=== PATIENT | female | born 1955 | race Hispanic/Latino ===

== ENCOUNTER 2017-11-13 13:38 | Outpatient (CLI) | payer BC ==
--- NOTE | 2017-11-13 16:02 | Mammography Report ---
BILATERAL DIGITAL SCREENING MAMMOGRAM with CAD: 11/13/17 13:38:00 CLINICAL: Routine screening. COMPARISON:11/10/16 FINDINGS: There are bilateral scattered areas of fibroglandular density. No mass, architectural distortion or suspicious calcifications. IMPRESSION: No mammographic evidence of malignancy. BI-RADS CATEGORY: 2 -- Benign RECOMMENDATION: Routine mammographic screening in one year. COMMENT: Patient follow-up letters are generated by our [employer] application.
== END 2017-11-13 13:39 | disposition home or self-care (01) ==
LOC: SPVWC 13:38
DX: Z12.31 Encounter for screening mammogram for malignant neoplasm of breast (principal)
CPT/HCPCS: 77067; G0202

== ENCOUNTER 2019-11-16 14:17 | Outpatient (CLI) | payer BC ==
--- NOTE | 2019-11-17 13:04 | Mammography Report ---
DIGITAL SCREENING MAMMOGRAM WITH TOMOSYNTHESIS WITH CAD, 11/16/2019 INDICATION: Routine Screening Mammography. SCREENING MAMMOGRAM TECHNIQUE: Digital bilateral 2D and 3D mammography with tomosynthesis was obtained in the craniocau kiet and mediolateral oblique projections. Computer-Aided Detection (CAD) analysis was used for inter pretation of this study. COMPARISON: 11/15/2018 and 11/13/2017 FINDINGS: Breast Density: There are scattered areas of fibroglandular density. There is no evidence of new mass, suspicious calcifications or architectural distortion in either crystal ast. A stable 2 cm left lower inner benign intraparenchymal lymph node versus benign mixed density ma ss. IMPRESSION: No mammographic evidence of malignancy. Follow up recommendation: Routine yearly BI-RADS Category 2: Benign. A "normal" or negative report should not discourage follow up or biopsy of a clinically significant f inding. A written summary of these findings will be mailed to the patient. The patient will be entered into a mammography reporting system which will generate a reminder letter for the patient's next appointmen t at the appropriate interval. The [employer] recommends yearly mammograms starting at age 40 and continuing as l roman as a woman is in good health. Breast MRI is recommended for women with an approximate 20-25% or greater lifetime risk of breast cancer, including women with a strong family history of breast or ova mohinder cancer or who have been treated for Hodgkin's disease. Signer Name: Song Menjivar MD Signed: 11/17/2019 12:59 PM Workstation Name: [id number]
== END 2019-11-16 14:18 | disposition home or self-care (01) ==
LOC: SPVWC 14:17
DX: Z12.31 Encounter for screening mammogram for malignant neoplasm of breast (principal)
CPT/HCPCS: 77063; 77067

== ENCOUNTER 2020-11-20 13:43 | Outpatient (CLI) | payer MEDICARE ==
--- NOTE | 2020-11-21 15:17 | Mammography Report ---
DIGITAL SCREENING MAMMOGRAM WITH CAD, 11/21/2020 CLINICAL INFORMATION / INDICATION: Routine screening mammography. TECHNIQUE: Digital bilateral 2D mammography was obtained in the craniocaudal and mediolateral obliqu e projections. This examination was interpreted with the benefit of Computer-Aided Detection analysis . COMPARISON: 11/16/2019 FINDINGS: Breast Density: There are scattered areas of fibroglandular density. No dominant mass, suspicious calcifications, or architectural distortion in either breast. Bilateral surgical changes in left densities are stable. IMPRESSION: No mammographic evidence of malignancy. Follow up recommendation: Routine yearly BI-RADS Category 2: Benign. A "normal" or negative report should not discourage follow up or biopsy of a clinically significant f inding. A written summary of these findings will be mailed to the patient. The patient will be entered into a mammography reporting system which will generate a reminder letter for the patient's next appointmen t at the appropriate interval. The [employer] recommends yearly mammograms starting at age 40 and continuing as l roman as a woman is in good health. Breast MRI is recommended for women with an approximate 20-25% or greater lifetime risk of breast cancer, including women with a strong family history of breast or ova mohinder cancer or who have been treated for Hodgkin's disease. Signer Name: Raoul Garrison MD Signed: 11/21/2020 3:12 PM Workstation Name: [id number]
== END 2020-11-20 13:44 | disposition home or self-care (01) ==
LOC: SPVWC 13:43
PROVIDERS: ATTEND Internal Medicine
DX: Z12.31 Encounter for screening mammogram for malignant neoplasm of breast (principal)
CPT/HCPCS: 77067

== ENCOUNTER 2021-11-21 13:22 | Outpatient (CLI) | payer MEDICARE ==
--- NOTE | 2021-11-21 16:08 | Mammography Report ---
DIGITAL SCREENING MAMMOGRAM WITH CAD, 11/21/2021 CLINICAL INFORMATION / INDICATION: Routine screening mammography. SCREENING TECHNIQUE: Digital bilateral 2D mammography was obtained in the craniocaudal and mediolateral obliqu e projections. This examination was interpreted with the benefit of Computer-Aided Detection analysis . COMPARISON: 11/13/2017 through 11/20/2020. FINDINGS: Breast Density: There are scattered areas of fibroglandular density. No dominant mass, suspicious calcifications, or architectural distortion in either breast. A benign-appearing nodule in the left lower inner quadrant is stable. IMPRESSION: No mammographic evidence of malignancy. Follow up recommendation: Routine yearly BI-RADS Category 2: BENIGN. A "normal" or negative report should not discourage follow up or biopsy of a clinically significant f inding. A written summary of these findings will be mailed to the patient. The patient will be entered into a mammography reporting system which will generate a reminder letter for the patient's next appointmen t at the appropriate interval. The [employer] recommends yearly mammograms starting at age 40 and continuing as l roman as a woman is in good health. Breast MRI is recommended for women with an approximate 20-25% or greater lifetime risk of breast cancer, including women with a strong family history of breast or ova mohinder cancer or who have been treated for Hodgkin's disease. Signer Name: Kike Leigh MD Signed: 11/21/2021 4:03 PM Workstation Name: [email or web address]
== END 2021-11-21 13:23 | disposition home or self-care (01) ==
LOC: SPVWC 13:22
PROVIDERS: ATTEND Internal Medicine
DX: Z12.31 Encounter for screening mammogram for malignant neoplasm of breast (principal); N63.24 Unspecified lump in the left breast, lower inner quadrant
CPT/HCPCS: 77067